=== PATIENT | male | born 1980 | race Caucasian/White ===

== ENCOUNTER 2021-12-10 19:02 | Emergency (ER) | payer OTHER ==
[~2021-12-10] VITALS: Ht 182.9 cm; Wt 117.9 kg
--- NOTE | 2021-12-10 19:30 | NUR ---
TO ER BED 15. BIBS C/O HEADACHE AND R EYE PRESSURE FOR 6 DAYS. NOT RELIEVED BY OTC MEDS. CONNECTED TO MONITOR. AWAITING MD DUFF
[2021-12-10] MEDS ORDERED: TONO PEN in ED SUPPLY ONICELL 1 EA MC ONE (20:00)
[2021-12-10] MEDS: TETRACAINE HCL 0.5% OPHTALMIC 15 ML BOTTLE OP ONE (20:16)
[2021-12-10] MEDS: FLUORESCEIN SODIUM OPHTH 1 EA STRIP OP ONE (20:16)
[2021-12-10] MEDS ORDERED: KETOROLAC TROMETHAMINE 15 MG/ML VIAL ONE (21:21)
[2021-12-10] MEDS ORDERED: PROCHLORPERAZINE EDISYLATE 10 MG/2 ML VIAL ONE (21:21)
--- NOTE | 2021-12-10 21:37 | NUR ---
IV LINE ESTABLISHED , LAC 18G
[2021-12-10] MEDS: PROCHLORPERAZINE EDISYLATE 10 MG/2 ML VIAL IVP ONE (21:38)
[2021-12-10] MEDS: IV NS 0.9% 1,000 ML BAG IV ONE (21:38)
[2021-12-10] MEDS: KETOROLAC TROMETHAMINE INJ 30 MG/ML VIAL IV ONE (21:38)
--- NOTE | 2021-12-10 22:30 | NUR ---
IV removed. Catheter intact and site benign. Pressure and 4x4 applied to site. No bleeding noted.
--- NOTE | 2021-12-10 22:36 | NUR ---
Patient discharged to home in stable condition. Written and verbal after care instructions given. Patient verbalizes understanding of instruction.
[2021-12-10 22:38] VITALS: BP 149/87
== END 2021-12-10 22:38 | disposition home or self-care (01) ==
LOC: ER 19:30
DX: R51.9 Headache, unspecified (principal); H04.211 Epiphora due to excess lacrimation, right lacrimal gland; J45.909 Unspecified asthma, uncomplicated; Z88.8 Allergy status to other drugs, medicaments and biological substances
CPT/HCPCS: 70450; 96361; 96374; 96375; 99284; J0780; J1885; J7030

== ENCOUNTER 2022-04-17 02:58 | Emergency (ER) | payer OTHER ==
[~2022-04-17] VITALS: Ht 182.9 cm; Wt 120.2 kg
[2022-04-17 03:08] VITALS: BP 143/92
--- NOTE | 2022-04-17 03:33 | NUR ---
Patient discharged to home in stable condition. Written and verbal after care instructions given. Patient verbalizes understanding of instruction.
[2022-04-17] MEDS ORDERED: TDAP [DIPH/PERTUSSIS/TET] 0.5 ML VIAL IM ONE ×2 (03:34→04:00)
== END 2022-04-17 03:43 | disposition home or self-care (01) ==
LOC: ER 03:03
DX: S91.312A Laceration without foreign body, left foot, initial encounter (principal); J45.909 Unspecified asthma, uncomplicated; F17.200 Nicotine dependence, unspecified, uncomplicated; Z88.8 Allergy status to other drugs, medicaments and biological substances; W26.0XXA Contact with knife, initial encounter; Y93.89 Activity, other specified; Y92.89 Other specified places as the place of occurrence of the external cause; Y99.8 Other external cause status
CPT/HCPCS: 99282; 12001; A6403; 90715

== ENCOUNTER 2024-01-13 00:37 | Emergency (ER) | payer OTHER | END 2024-01-13 01:03 | disposition left against medical advice (07) | LOC: ER 00:42 | DX: M79.643 Pain in unspecified hand (principal); Z53.21 Procedure and treatment not carried out due to patient leaving prior to being seen by health care provider ==

== ENCOUNTER 2024-02-20 00:26 | Emergency (ER) | payer OTHER ==
[~2024-02-20] VITALS: Ht 182.9 cm; Wt 124.7 kg
[2024-02-20] MEDS ORDERED: IBUPROFEN 600 MG TABLET ONE (01:50)
[2024-02-20] MEDS: IBUPROFEN 600 MG TABLET PO ONE (01:51)
[2024-02-20 03:52] VITALS: BP 144/110; TEMP 98; O2SAT 98
== END 2024-02-20 03:53 | disposition home or self-care (01) ==
LOC: ER 00:26
DX: M79.642 Pain in left hand (principal); M79.641 Pain in right hand; J45.909 Unspecified asthma, uncomplicated; F12.10 Cannabis abuse, uncomplicated; F17.200 Nicotine dependence, unspecified, uncomplicated; Z88.8 Allergy status to other drugs, medicaments and biological substances; V43.52XA Car driver injured in collision with other type car in traffic accident, initial encounter; Y93.89 Activity, other specified; Y92.488 Other paved roadways as the place of occurrence of the external cause; Y99.8 Other external cause status
CPT/HCPCS: 73130-TC